=== PATIENT | female | born 1935 | race African-American/Black ===

== ENCOUNTER 2021-12-17 06:22 | Inpatient (IN) | payer MEDICARE, MEDICAID ==
[~2021-12-17] VITALS: Ht 165.1 cm; Wt 63.5 kg
[2021-12-17 07:55] LABS: BASOPHILS % 0.6 % (0.0-2.0); EOSINOPHILS % 0.7 % (0.0-5.0); HEMOGLOBIN. 11.2 g/dL (12.0-16.0); LYMPHOCYTES % 20.3 % (20.0-50.0); MEAN PLATELET VOLUME 7.5 fl (7.4-10.4); MONOCYTES % 3.8 % (2.0-8.0); NEUTROPHILS % 74.6 % (40.0-76.0); PLATELET 380 x1000/uL (130-400); RED BLOOD CELL COUNT 4.32 mill/uL (4.2-5.4); RED CELL DISTRIBUTION WIDTH 19.8 % (11.6-14.6)
[2021-12-17 08:02] LABS: CHLORIDE 110 mEq/L (98-107)
[2021-12-17 08:04] LABS: PROTHROMBIN TIME 10.9 sec (9.6-11.0)
[2021-12-17] MEDS ORDERED: ONDANSETRON HCL 4MG/2ML INJ IV ONE (10:00)
[2021-12-17] MEDS ORDERED: PANTOPRAZOLE SODIUM 40 MG/VIAL IV SCH (10:00)
[2021-12-17] MEDS ORDERED: ASPIRIN 325MG EC TABLET PO ONE (10:00)
[2021-12-17] MEDS ORDERED: MORPHINE SULFATE 4 MG/ML CPJ (NOT FOR IM USE) IV ONE (10:00)
[2021-12-17] MEDS ORDERED: NALOXONE HCL 0.4MG/ML VIAL IV PRN (13:00)
[2021-12-17] MEDS ORDERED: CLONIDINE 0.1MG TABLET PO PRN (13:00)
[2021-12-17] MEDS ORDERED: DOCUSATE SODIUM 100MG CAPSULE PO PRN (13:00)
[2021-12-17] MEDS ORDERED: GUAIFENESIN 200MG/10ML SUGAR FREE UDC PO PRN (13:00)
[2021-12-17] MEDS ORDERED: IPRATROPIUM/ALBUTEROL 0.5-3(2.5)MG/3ML NEB HHN PRN (13:00)
[2021-12-17] MEDS ORDERED: DIPHENHYDRAMINE 50MG/ML VIAL IV PRN (13:00)
[2021-12-17] MEDS ORDERED: MORPHINE SULFATE 2 MG/ML CPJ (NOT FOR IM USE) IV PRN (13:00)
[2021-12-17] MEDS ORDERED: MAGNESIUM/ALUMINUM HYDROXIDE/SIMETHICONE 30ML UDC PO PRN (13:00)
[2021-12-17] MEDS ORDERED: ONDANSETRON HCL 4MG/2ML INJ IV PRN (13:00)
[2021-12-17] MEDS ORDERED: ACETAMINOPHEN 325MG TABLET PO PRN (13:00)
[2021-12-17] MEDS ORDERED: HYDRALAZINE 20MG/ML VIAL IV PRN (13:00)
[2021-12-17] MEDS ORDERED: HYDROCODONE/ACETAMINOPHEN 5/325MG TABLET PO PRN (13:00)
[2021-12-17] MEDS ORDERED: LORAZEPAM 2MG/ML CPJ IV PRN (13:00)
[2021-12-17 13:20] VITALS: BP 113/55
[2021-12-17] MEDS ORDERED: POTASSIUM CHLORIDE 20MEQ TABLET SR PO NR (15:00)
[2021-12-17] MEDS: SODIUM CHLORIDE 0.9% INJ 3ML FLUSH IVF SCH ×2 (15:08→22:00)
[2021-12-17 16:00] VITALS: BP 118/66
[2021-12-17] MEDS ORDERED: FURO20TA4 PO (16:44)
[2021-12-17] MEDS ORDERED: LOSA25TA26 MT (16:44)
[2021-12-17] MEDS ORDERED: ERGO1250 (16:44)
[2021-12-17] MEDS ORDERED: AMLO5TAB88 MT (16:44)
[2021-12-17] MEDS ORDERED: METH-773 MT (16:44)
[2021-12-17] MEDS ORDERED: POTA20LI52 MT (16:44)
[2021-12-17] MEDS ORDERED: CLOP-31 MT (16:44)
[2021-12-17] MEDS ORDERED: FERR-54 MT (16:44)
[2021-12-17] MEDS ORDERED: AZIL80TA MT (16:44)
[2021-12-17] MEDS ORDERED: TEMA30CA MT (16:44)
[2021-12-17] MEDS ORDERED: IBUP-2029 MT (16:44)
[2021-12-17] MEDS ORDERED: PROM6.254 MT (16:44)
[2021-12-17] MEDS ORDERED: HYDR-4001 MT (16:44)
[2021-12-17] MEDS ORDERED: BENI5 MT (16:44)
[2021-12-17 16:46] LABS: CREATINE KINASE MB FRACTION 4.6 ng/mL (0.5-3.6)
[2021-12-17 19:48] LABS: GAMMA GLUTAMYL TRANSPEPTIDASE 161 IU/L (7-32); TOTAL IRON BINDING CAPACITY 288 ug/dL (250-450)
[2021-12-17 20:14] LABS: FOLIC ACID (FOLATE) SERUM 7.3 ng/mL (>5.38)
[2021-12-17 21:00] VITALS: BP 121/68
[2021-12-17 23:05] LABS: CREATINE KINASE MB FRACTION 3.5 ng/mL (0.5-3.6)
[2021-12-18 00:32] VITALS: BP 90/46
[2021-12-18 04:00] VITALS: BP 96/55
[2021-12-18 07:23] LABS: BASOPHILS % 0.1 % (0.0-2.0); HEMATOCRIT. 32.4 % (36.0-48.0); HEMOGLOBIN. 10.3 g/dL (12.0-16.0); LYMPHOCYTES % 9.2 % (20.0-50.0); MEAN CORPUSCULAR VOLUME 81.8 fL (81.0-99.0); MEAN PLATELET VOLUME 8.1 fl (7.4-10.4); MONOCYTES % 4.8 % (2.0-8.0); NEUTROPHILS % 85.9 % (40.0-76.0); PLATELET 328 x1000/uL (130-400); RED BLOOD CELL COUNT 3.96 mill/uL (4.2-5.4); RED CELL DISTRIBUTION WIDTH 20.1 % (11.6-14.6)
[2021-12-18 07:34] LABS: INR 1.1; PROTHROMBIN TIME 11.6 sec (9.6-11.0)
[2021-12-18 07:39] LABS: CHLORIDE 112 mEq/L (98-107)
[2021-12-18 08:00] VITALS: BP 96/51
[2021-12-18] MEDS: MESALAMINE 400 MG CAPSULE.DR PO SCH ×2 (08:34→17:41)
[2021-12-18 12:00] VITALS: BP 90/56
[2021-12-18] MEDS: DEXT 5%/0.9% NACL 1,000 ML IV SCH (14:47)
[2021-12-18 16:00] VITALS: BP 97/57
[2021-12-18 20:00] VITALS: BP 92/38
[2021-12-18] MEDS: SODIUM CHLORIDE 0.9% INJ 3ML FLUSH IVF SCH (21:04)
[2021-12-19] VITALS: BP 103/58
[2021-12-19 04:00] VITALS: BP 107/59
[2021-12-19] MEDS: DEXT 5%/0.9% NACL 1,000 ML IV SCH ×3 (06:12→22:28)
[2021-12-19] MEDS: SODIUM CHLORIDE 0.9% INJ 3ML FLUSH IVF SCH ×3 (06:13→22:28)
[2021-12-19 07:18] LABS: BASOPHILS % 1.4 % (0.0-2.0); EOSINOPHILS % 1.2 % (0.0-5.0); HEMATOCRIT. 30.7 % (36.0-48.0); HEMOGLOBIN. 9.7 g/dL (12.0-16.0); LYMPHOCYTES % 16.6 % (20.0-50.0); MEAN CORPUSCULAR HEMOGLOBIN 25.9 pg (28.0-32.0); MEAN CORPUSCULAR VOLUME 81.5 fL (81.0-99.0); MEAN PLATELET VOLUME 8.4 fl (7.4-10.4); MONOCYTES % 6.4 % (2.0-8.0); NEUTROPHILS % 74.4 % (40.0-76.0); PLATELET 295 x1000/uL (130-400); RED BLOOD CELL COUNT 3.77 mill/uL (4.2-5.4); RED CELL DISTRIBUTION WIDTH 19.8 % (11.6-14.6)
[2021-12-19 08:00] VITALS: BP 106/54
[2021-12-19] MEDS: MESALAMINE 400 MG CAPSULE.DR PO SCH ×2 (10:25→17:06)
[2021-12-19 13:00] VITALS: BP 101/56
[2021-12-19] MEDS ORDERED: POTASSIUM CHLORIDE 20MEQ TABLET SR PO NR (13:00)
[2021-12-19 16:00] VITALS: BP 101/46
[2021-12-19 20:00] VITALS: BP 102/43
[2021-12-20] VITALS: BP 101/49
[2021-12-20 04:00] VITALS: BP 111/51
[2021-12-20] MEDS: SODIUM CHLORIDE 0.9% INJ 3ML FLUSH IVF SCH ×2 (05:33→14:12)
[2021-12-20 08:00] VITALS: BP 121/52
[2021-12-20 08:07] LABS: CHLORIDE 116 mEq/L (98-107)
[2021-12-20 08:11] LABS: BASOPHILS % 0.4 % (0.0-2.0); EOSINOPHILS % 1.5 % (0.0-5.0); HEMATOCRIT. 26.9 % (36.0-48.0); HEMOGLOBIN. 8.8 g/dL (12.0-16.0); LYMPHOCYTES % 19.2 % (20.0-50.0); MEAN CORPUSCULAR HEMOGLOBIN 26.4 pg (28.0-32.0); MEAN CORPUSCULAR VOLUME 80.5 fL (81.0-99.0); MEAN PLATELET VOLUME 8.2 fl (7.4-10.4); MONOCYTES % 5.3 % (2.0-8.0); NEUTROPHILS % 73.6 % (40.0-76.0); PLATELET 263 x1000/uL (130-400); RED BLOOD CELL COUNT 3.34 mill/uL (4.2-5.4); RED CELL DISTRIBUTION WIDTH 19.7 % (11.6-14.6)
[2021-12-20] MEDS: MESALAMINE 400 MG CAPSULE.DR PO SCH ×2 (09:15→17:22)
[2021-12-20] MEDS: DEXT 5%/0.9% NACL 1,000 ML IV SCH ×2 (09:16→16:00)
[2021-12-20 12:00] VITALS: BP 103/57
[2021-12-20 13:06] LABS: SACCHAROMYCES CEREVISIAE IGG <20.0 Units (0.0-24.9); SACCHAROMYCES CEREVISIAE IGM <20.0 Units (0.0-24.9)
[2021-12-20 16:00] VITALS: BP 120/58
[2021-12-20 17:51] VITALS: BP 120/58
[2021-12-20 19:09] LABS: ATYPICAL pANCA <1:20 titer (Neg:<1:20)
== END 2021-12-20 20:10 | disposition home or self-care (01) | DRG 391 ==
LOC: ER 06:22 → 7WST 12:01 → EDBEDREQ 12:03 → EDBEDREQTM 12:03 → ENRESERV 12:14
PROVIDERS: ADMIT Internal Medicine; ATTEND Internal Medicine
DX: K58.9 Irritable bowel syndrome, unspecified (principal); J96.00 Acute respiratory failure, unspecified whether with hypoxia or hypercapnia; E46 Unspecified protein-calorie malnutrition; I42.1 Obstructive hypertrophic cardiomyopathy; D64.9 Anemia, unspecified; E87.6 Hypokalemia; E03.9 Hypothyroidism, unspecified; E78.5 Hyperlipidemia, unspecified; I10 Essential (primary) hypertension; I25.10 Atherosclerotic heart disease of native coronary artery without angina pectoris; J44.9 Chronic obstructive pulmonary disease, unspecified; Z79.82 Long term (current) use of aspirin; Z86.73 Personal history of transient ischemic attack (TIA), and cerebral infarction without residual deficits; Z72.0 Tobacco use; Z79.899 Other long term (current) drug therapy; Z90.49 Acquired absence of other specified parts of digestive tract; Z95.5 Presence of coronary angioplasty implant and graft; Z99.81 Dependence on supplemental oxygen; Z68.23 Body mass index [BMI] 23.0-23.9, adult; R77.8 Other specified abnormalities of plasma proteins
CPT/HCPCS: 36415; 71045; 80048; 80053; 82270; 82550; 82553; 82607; 82728; 82746; 82977; 83540; 83550; 83880; 84443; 84484; 85025; 85044; 86256; 86671; 86850; 86900; 93005; 93306; 93970; 99291; C9113; J2270; J2405; J7042